=== PATIENT | male | born 1965 | race Caucasian/White ===

== ENCOUNTER 2021-04-25 15:33 | Emergency (ER) | payer MEDICAID ==
--- NOTE | 2021-04-25 17:01 | EDM.PDOCBH ---
<Dxion Bejarano - Last Filed: 04/25/21 17:57> ED HPI GENERAL MEDICAL PROBLEM - General Chief Complaint: Behavioral/Psych Stated Complaint: EVAL Time Seen by Provider: 04/25/21 16:00 Source of Information: Reports: Patient, Police History Limitations: Reports: Altered Mental Status, Physical Impairment (Patient is quite clearly in a manic state of mind) - History of Present Illness INITIAL COMMENTS - FREE TEXT/NARRATIVE: 55-year-old male with a long history of bipolar disorder and schizophrenia, is brought in by police after causing social disturbances out in the [facility] for the last 16 hours. It started last night when he was in the [employer] liquor store ranting and raving about how public intoxication is not being taken care of. He had a prolonged altercation with law enforcement, then finally sped off in his car. Today he called 911 several times, rambling on the 911 calls and talking about how he is in collaboration with other countries, putting together committees for psychiatric hearings to fix widespread corruption. He is really not making any clear sense to anybody he is talking to. According to his brother, he is on psychiatric medications and "not taking them" and he has been hospitalized many times with the same issue. The patient himself admits that he has been hospitalized and initially agreed to coming into the hospital for evaluation. However once here he refused to give blood and urine samples for testing because it was a conspiracy against him to keep him from his daughter. Apparently his family wants nothing to do with him. He is not threatening self-harm, but is obviously volatile with his personality, manic, and not making sense. He appears he needs inpatient stabilization. Onset: Unknown/Unsure Associated Symptoms: Reports: Other (Patient is denying any physical symptoms) - Related Data Allergies Allergy/AdvReac Type Severity Reaction Status Date / Time No Known Allergies Allergy Verified 04/25/21 17:39 Home Meds: Home Meds Aspirin [Adult Low Dose Aspirin EC] 162 mg PO BID 04/25/21 [History] carvediloL [Coreg] 0 mg PO BID 04/25/21 [History] lamoTRIgine [Lamotrigine] 0 mg PO BEDTIME 04/25/21 [History] lisinopriL [Lisinopril] 20 mg PO DAILY 04/25/21 [History] Past Medical History Cardiovascular History: Reports: Hypertension Musculoskeletal History: Reports: Fracture Psychiatric History: Reports: Bipolar - Infectious Disease History Infectious Disease History: Reports: None Social & Family History - Tobacco Use Tobacco Use Comment: current smoker - Caffeine Use Caffeine Use: Reports: Coffee - Recreational Drug Use Recreational Drug Type: Reports: Marijuana/Hashish ED ROS GENERAL - Review of Systems Review Of Systems: See Below HEENT: Reports: No Symptoms Respiratory: Reports: No Symptoms Cardiovascular: Reports: No Symptoms GI/Abdominal: Reports: No Symptoms : Reports: No Symptoms Skin: Reports: No Symptoms Neurological: Denies: Dizziness, Headache Psychiatric: Reports: Mood Lability (Patient does not complain of psychiatric symptoms but is obviously displaying them). Denies: Suicidal Ideation ED EXAM, BEHAVIORAL HEALTH - Physical Exam Exam: See Below Exam Limited By: No Limitations General Appearance: Alert, No Apparent Distress Eye Exam: Bilateral Eye: EOMI, Normal Inspection Head: Atraumatic Respiratory/Chest: No Respiratory Distress, Lungs Clear Cardiovascular: Regular Rate, Rhythm Extremities: Normal Inspection Neurological: No Motor/Sensory Deficits (Ambulates without difficulty, speech is clear, coordination is normal) Psychiatric: Restless, Uncooperative, Flight of Ideas, Spiritism Delusions, Tangential Thoughts. No: Homicidal Thoughts, Suicidal Plan, Suicidal Thoughts Skin Exam: Warm, Dry COURSE, BEHAVIORAL HEALTH COMP - Course Re-Assessment/Re-Exam: With the presence of the police force, he did agree to give blood and a urine sample. Patient later changed his mind and refused to give a urine sample. He may drink right down on a piece of paper that I only wanted the urine to show he was negative for methamphetamine then he was willing to do it. He then started asking for a "hypodermic needle" to help him sleep. I did promise him this if you would give us a urine, so Zyprexa 10 mg IM was ordered but he has not as of yet allow us to give it to him. Blood work overall was reassuring, UA and urine drug screen is still pending. UA and urine drug screen are completely negative. Patient was given 10 mg of Zyprexa, patient care was turned over to [facility] pending disposition. A 72-hour hold was filled out. Departure - Departure Disposition: DC/Tfer to Psych Hosp/Unit [facility] Clinical Impression: Acute psychosis, Noncompliance with medication regimen Bipolar disorder (manic depression) Qualifiers: Active/Remission status: currently active Current bipolar episode type: manic Current episode severity: severe Psychotic features: with psychotic features Qualified Code(s): F31.2 - Bipolar disorder, current episode manic severe with psychotic features - Discharge Information Referrals: PCP,None [Primary Care Provider] - Forms: ED Department Discharge Sepsis Event Note (ED) - Evaluation Sepsis Screening Result: No Definite Risk <Celestino Goldberg - Last Filed: 04/25/21 20:10> COURSE, BEHAVIORAL HEALTH COMP - Course Vital Signs: Last Vital Signs Temp 36.6 C 04/25/21 16:04 Pulse 102 H 04/25/21 16:04 Resp 20 04/25/21 16:04 BP 130/80 04/25/21 16:04 Pulse Ox 96 04/25/21 16:04 Orders, Labs, Meds: Laboratory Tests 04/25/21 04/25/21 04/25/21 Range/Units 16:42 16:42 17:31 WBC 10.9 (4.5-11.0) K/uL RBC 5.22 (4.30-5.90) M/uL Hgb 16.2 H (12.0-15.0) g/dL Hct 46.9 (40.0-54.0) % MCV 90 (80-98) fL MCH 31 (27-31) pg MCHC 35 (32-36) % Plt Count 262 (150-400) K/uL Neut % (Auto) 66.6 H (36-66) % Lymph % (Auto) 21.8 L (24-44) % [place] % (Auto) 9.9 H (2-6) % Eos % (Auto) 1.3 L (2-4) % Baso % (Auto) 0.4 (0-1) % Sodium 136 L (140-148) mmol/L Potassium 4.2 (3.6-5.2) mmol/L Chloride 101 (100-108) mmol/L Carbon Dioxide 24 (21-32) mmol/L Anion Gap 15.2 H (5.0-14.0) mmol/L BUN 17 (7-18) mg/dL Creatinine 1.3 (0.8-1.3) mg/dL Est Cr Clr Drug Dosing 65.71 mL/min Estimated GFR (MDRD) 58 L (>60) Glucose 128 H (74-106) mg/dL Calcium 8.4 L (8.5-10.1) mg/dL Total Bilirubin 0.5 (0.2-1.0) mg/dL AST 31 (15-37) U/L ALT 45 (12-78) U/L Alkaline Phosphatase 99 (46-116) U/L Total Protein 7.0 (6.4-8.2) g/dL Albumin 3.5 (3.4-5.0) g/dL Globulin 3.5 (2.3-3.5) g/dL Albumin/Globulin Ratio 1.0 L (1.2-2.2) Urine Color Yellow (YELLOW) Urine Appearance Clear (CLEAR) Urine pH 6.5 (5.0-8.0) Ur Specific [place] 1.010 (1.008-1.030) Urine Protein Negative (NEGATIVE) mg/dL Urine Glucose (UA) Negative (NEGATIVE) mg/dL Urine Ketones Negative (NEGATIVE) mg/dL Urine Occult Blood Trace-intact H (NEGATIVE) Urine Nitrite Negative (NEGATIVE) Urine Bilirubin Negative (NEGATIVE) Urine Urobilinogen 0.2 (0.2-1.0) EU/dL Ur Leukocyte Esterase Negative (NEGATIVE) Urine RBC 0-5 (0-5) Urine WBC Not seen (0-5) Ur Epithelial Cells Not seen Amorphous Sediment Not seen Urine Bacteria Not seen Urine Mucus Not seen Urine Opiates Screen (NEGATIVE) Ur Oxycodone Screen (NEGATIVE) Urine Methadone Screen (NEGATIVE) Ur Propoxyphene Screen (NEGATIVE) Ur Barbiturates Screen (NEGATIVE) Ur Tricyclics Screen (NEGATIVE) Ur Phencyclidine Scrn (NEGATIVE) Ur Amphetamine Screen (NEGATIVE) U Methamphetamines Scrn (NEGATIVE) Urine MDMA Screen (NEGATIVE) U Benzodiazepines Scrn (NEGATIVE) U Cocaine Metab Screen (NEGATIVE) U Marijuana (THC) Screen (NEGATIVE) SARS CoV-2 RNA Rapid MARIA 04/25/21 04/25/21 Range/Units 17:31 18:46 WBC (4.5-11.0) K/uL RBC (4.30-5.90) M/uL Hgb (12.0-15.0) g/dL Hct (40.0-54.0) % MCV (80-98) fL MCH (27-31) pg MCHC (32-36) % Plt Count (150-400) K/uL Neut % (Auto) (36-66) % Lymph % (Auto) (24-44) % [place] % (Auto) (2-6) % Eos % (Auto) (2-4) % Baso % (Auto) (0-1) % Sodium (140-148) mmol/L Potassium (3.6-5.2) mmol/L Chloride (100-108) mmol/L Carbon Dioxide (21-32) mmol/L Anion Gap (5.0-14.0) mmol/L BUN (7-18) mg/dL Creatinine (0.8-1.3) mg/dL Est Cr Clr Drug Dosing mL/min Estimated GFR (MDRD) (>60) Glucose (74-106) mg/dL Calcium (8.5-10.1) mg/dL Total Bilirubin (0.2-1.0) mg/dL AST (15-37) U/L ALT (12-78) U/L Alkaline Phosphatase (46-116) U/L Total Protein (6.4-8.2) g/dL Albumin (3.4-5.0) g/dL Globulin (2.3-3.5) g/dL Albumin/Globulin Ratio (1.2-2.2) Urine Color (YELLOW) Urine Appearance (CLEAR) Urine pH (5.0-8.0) Ur Specific [place] (1.008-1.030) Urine Protein (NEGATIVE) mg/dL Urine Glucose (UA) (NEGATIVE) mg/dL Urine Ketones (NEGATIVE) mg/dL Urine Occult Blood (NEGATIVE) Urine Nitrite (NEGATIVE) Urine Bilirubin (NEGATIVE) Urine Urobilinogen (0.2-1.0) EU/dL Ur Leukocyte Esterase (NEGATIVE) Urine RBC (0-5) Urine WBC (0-5) Ur Epithelial Cells Amorphous Sediment Urine Bacteria Urine Mucus Urine Opiates Screen Negative (NEGATIVE) Ur Oxycodone Screen Negative (NEGATIVE) Urine Methadone Screen Negative (NEGATIVE) Ur Propoxyphene Screen Negative (NEGATIVE) Ur Barbiturates Screen Negative (NEGATIVE) Ur Tricyclics Screen Negative (NEGATIVE) Ur Phencyclidine Scrn Negative (NEGATIVE) Ur Amphetamine Screen Negative (NEGATIVE) U Methamphetamines Scrn Negative (NEGATIVE) Urine MDMA Screen Negative (NEGATIVE) U Benzodiazepines Scrn Negative (NEGATIVE) U Cocaine Metab Screen Negative (NEGATIVE) U Marijuana (THC) Screen Negative (NEGATIVE) SARS CoV-2 RNA Rapid MARIA Negative Medications Discontinued Medications Generic Name Dose Route Start Last Admin Trade Name Tonie PRN Reason Stop Dose Admin Diphenhydramine HCl 50 mg 04/25/21 18:45 04/25/21 19:01 Diphenhydramine 50 Mg/Ml Sdv IM 04/25/21 18:46 50 mg ONETIME STA Administration Haloperidol Lactate 5 mg 04/25/21 18:45 04/25/21 19:02 Haloperidol Lactate 5 Mg/Ml Sdv IM 04/25/21 18:46 5 mg ONETIME ONE Administration Lorazepam 2 mg 04/25/21 18:45 04/25/21 19:02 Lorazepam 2 Mg/Ml Sdv IM 04/25/21 18:46 2 mg ONETIME ONE Administration Olanzapine 10 mg 04/25/21 17:32 04/25/21 17:40 Olanzapine 10 Mg Vial IM 04/25/21 17:33 10 mg ONETIME ONE Administration Medical Clearance: 04/25/21 19:56 patient is medically cleared for inpatient admission. He is on a 72-hour hold. Discharge vs Psych Eval/Treatment:: 04/25/21 19:57 patient was accepted to [facility] for admission to inpatient psychiatry. Dr. Jimenez accepts the patient at [id number]. We will arrange for EMS to transfer the patient. Departure - Departure Time of Disposition: 20:09 Sepsis Event Note (ED) - Focused Exam Vital Signs: Vital Signs Temp Pulse Resp BP Pulse Ox 04/25/21 16:04 36.6 C 102 H 20 130/80 96 04/25/21 15:44 36.6 C 102 H 20 130/80 96
[2021-04-25] MEDS ORDERED: OLANZapine 10 MG Vial IM ONE (17:32)
[2021-04-25] MEDS ORDERED: diphenhydrAMINE 50 MG/ML SDV IM STA (18:45)
[2021-04-25] MEDS ORDERED: Haloperidol Lactate 5 MG/ML SDV IM ONE (18:45)
[2021-04-25] MEDS ORDERED: LORazepam 2 MG/ML SDV IM ONE (18:45)
== END 2021-04-25 21:02 ==
LOC: JP.ED 15:33
DX: F23 Brief psychotic disorder (principal); F31.2 Bipolar disorder, current episode manic severe with psychotic features; I10 Essential (primary) hypertension; Z91.19 Patient's noncompliance with other medical treatment and regimen; Z79.82 Long term (current) use of aspirin; Z79.899 Other long term (current) drug therapy; Z20.822 Contact with and (suspected) exposure to COVID-19
CPT/HCPCS: 36415; 80053; 80305; 81001; 85025; 87635; 96372; 99285; J1200; J1630; J2060; J3490; U0002